=== PATIENT | female | born 1950 | race American Indian/Alaskan Native ===

== ENCOUNTER 2018-07-02 14:52 | Inpatient (IN) | payer MEDICARE, OTHER ==
[2018-07-02 14:52] VITALS: BMI 25.2
[2018-07-02 15:31] LABS: BASO % 0.5 % (0.0-2.0); EOS # 0.1 K/uL (0.0-0.7); EOS % 0.8 % (0.0-4.0); LYMPH # 3.3 K/uL (1.0-4.3); LYMPH % 34.6 % (20.0-40.0); MEAN CELL VOLUME 91.3 fL (81.0-99.0); MEAN CORPUSCULAR HEMOGLOBIN 31.3 pg (27.0-31.0); MEAN CORPUSCULAR HGB CONC 34.3 g/dL (33.0-37.0); MEAN PLATELET VOLUME 8.8 fL (7.2-11.7); MONO # 0.8 K/uL (0.0-0.8); MONO % 8.7 % (0.0-10.0); NEUT # 5.3 K/uL (1.8-7.0); NEUT % 55.4 % (50.0-75.0); RBC 4.14 Mil/uL (3.80-5.20); RED CELL DISTRIBUTION WIDTH 12.5 % (11.5-14.5); WHITE BLOOD COUNT 9.5 K/uL (4.8-10.8)
[2018-07-02 15:39] LABS: INR 1.2; PROTHROMBIN TIME 13.3 SECONDS (9.7-12.2)
[2018-07-02 15:48] LABS: ALB/GLOB RATIO 1.2 (1.0-2.1); ALBUMIN 4.1 g/dL (3.5-5.0); BLOOD UREA NITROGEN 13 mg/dL (7-17); GFR AFRICAN-AMERICAN > 60; GFR NON-AFRICAN AMERICAN > 60
[2018-07-02 15:49] LABS: ALT/SGPT 26 U/L (9-52); AST/SGOT 20 U/L (14-36)
--- NOTE | 2018-07-02 16:27 | C.PDOC ---
Addendum entered and electronically signed by Vinicio Fregoso MD 07/02/18 16: 32: ED Course And Treatment - Laboratory Results Result Diagrams: 07/02/18 15:24 07/02/18 15:24 ECG: Interpreted By Me, Viewed By Me ECG Rhythm: Sinus Rhythm ECG Interpretation: No Acute Changes Rate From EC O2 Sat by Pulse Oximetry: 100 Original Note: History Of Present Illness Pt was sent in by Dr. Crews for admission due to severe b/l LE PVD with pain. Time Seen by Provider: 07/02/18 14:59 Chief Complaint (Nursing): Lower Extremity Problem/Injury History Per: Patient Onset/Duration Of Symptoms: Days Current Symptoms Are (Timing): Still Present Severity: Moderate Additional History Per: Prior Records Past Medical History Reviewed: Historical Data, Nursing Documentation, Vital Signs Vital Signs: Last Vital Signs Temp Pulse 74 07/02/18 15:10 Resp 16 07/02/18 15:10 BP 159/60 H 07/02/18 15:10 Pulse Ox 100 07/02/18 15:10 - Medical History PMH: HTN Other PMH: PVD. Scleroderma. Other Surgeries: LE bypass - [facility] Procedures ANGIOPLASTY OF OTHER NON-CORONARY VESSEL(S) (07/16/13) ATHERECTOMY OF OTHER NON-CORONARY VESSEL(S) (02/10/14) PROCEDURE ON SINGLE VESSEL (02/10/14) Family History: States: Unknown Family Hx - Social History Hx Tobacco Use: No (Quit in 1989) Hx Alcohol Use: No Hx Substance Use: No - Immunization History Hx Tetanus Toxoid Vaccination: No Hx Influenza Vaccination: No Hx Pneumococcal Vaccination: No Review Of Systems Except As Marked, All Systems Reviewed And Found Negative. Constitutional: Negative for: Fever, Weakness Cardiovascular: Negative for: Chest Pain Respiratory: Negative for: Shortness of Breath, Hemoptysis Gastrointestinal: Negative for: Vomiting, Abdominal Pain Musculoskeletal: Positive for: Leg Pain (b/l). Negative for: Neck Pain, Back Pain Skin: Negative for: Rash Neurological: Negative for: Weakness, Numbness Physical Exam - Physical Exam Appears: Non-toxic, No Acute Distress Skin: Normal Color, Warm, Dry, No Rash Head: Atraumatic, Normacephalic Eye(s): bilateral: Normal Inspection, PERRL, EOMI Neck: Normal ROM, Supple Cardiovascular: Rhythm Regular Respiratory: Normal Breath Sounds, No Accessory Muscle Use Gastrointestinal/Abdominal: Soft, No Tenderness Back: No CVA Tenderness, No Vertebral Tenderness Extremity: Normal ROM, No Pedal Edema, No Calf Tenderness, Capillary Refill (wnl ), No Deformity Extremity: Bilateral: Normal Color And Temperature Pulses: Left Dorsalis Pedis: Decreased, Right Dorsalis Pedis: Decreased Neurological/Psych: Oriented x3, Normal Motor, Normal Sensation ED Course And Treatment - Laboratory Results Result Diagrams: 07/02/18 15:24 07/02/18 15:24 Lab Interpretation: No Acute Changes O2 Sat by Pulse Oximetry: 100 Pulse Ox Interpretation: Normal Disposition Discussed With : Bessy Vallecillo (PMD) Comment: He accepted pt on his service. Doctor Will See Patient In The: Hospital Counseled Patient/Family Regarding: Studies Performed, Diagnosis - Disposition Disposition: HOSPITALIZED Disposition Time: 16:30 Condition: FAIR - Clinical Impression Clinical Impression: PVD (peripheral vascular disease) with claudication
[2018-07-02 19:38] VITALS: RESP 20
[2018-07-02] MEDS ORDERED: Tramadol 25 mg PO PRN (21:37)
--- NOTE | 2018-07-02 23:46 | CP.PCM.HP ---
Past Patient History - Past Medical History & Family History Past Medical History?: Yes - Past Social History Smoking Status: Former Smoker - CARDIAC Hx Hypertension: Yes Hx Peripheral Vascular Disease: Yes - PULMONARY Hx Respiratory Disorders: No - NEUROLOGICAL Hx Neurological Disorder: No Hx Paralysis: No - HEENT Hx HEENT Problems: No - RENAL Hx Chronic Kidney Disease: No - ENDOCRINE/METABOLIC Hx Systemic Lupus Erythematosus: Yes - HEMATOLOGICAL/ONCOLOGICAL Hx Blood Disorders: No Hx Blood Transfusions: No Hx Blood Transfusion Reaction: No - INTEGUMENTARY Hx Dermatological Problems: Yes Other/Comment: SCLERODERMA - MUSCULOSKELETAL/RHEUMATOLOGICAL Hx Musculoskeletal Disorders: No Hx Falls: No - GASTROINTESTINAL Hx Gastrointestinal Disorders: No - GENITOURINARY/GYNECOLOGICAL Hx Genitourinary Disorders: No - PSYCHIATRIC Hx Psychophysiologic Disorder: No Hx Substance Use: No - SURGICAL HISTORY Hx Surgeries: Yes Other/Comment: STENTS TO BLLE - ANESTHESIA Hx Anesthesia: Yes Hx Anesthesia Reactions: No Meds Allergies/Adverse Reactions: Allergies Allergy/AdvReac Type Severity Reaction Status Date / Time No Known Allergies Allergy Verified 07/15/13 08:03 Results - Vital Signs Recent Vital Signs: Last Vital Signs Temp 98.5 F 07/02/18 18:00 Pulse 76 07/02/18 18:00 Resp 20 07/02/18 18:00 BP 158/64 H 07/02/18 18:00 Pulse Ox 98 07/02/18 18:00 - Labs Result Diagrams: 07/02/18 15:24 07/02/18 15:24 Labs: Laboratory Results - last 24 hr 07/02/18 07/02/18 07/02/18 15:24 15:24 15:24 WBC 9.5 RBC 4.14 Hgb 13.0 Hct 37.8 MCV 91.3 MCH 31.3 H MCHC 34.3 RDW 12.5 Plt Count 202 MPV 8.8 Neut % (Auto) 55.4 Lymph % (Auto) 34.6 Clarke % (Auto) 8.7 Eos % (Auto) 0.8 Baso % (Auto) 0.5 Neut # (Auto) 5.3 Lymph # (Auto) 3.3 Clarke # (Auto) 0.8 Eos # (Auto) 0.1 Baso # (Auto) 0.0 PT 13.3 H INR 1.2 APTT 28 Sodium 142 Potassium 3.4 L Chloride 106 Carbon Dioxide 26 Anion Gap 13 BUN 13 Creatinine 0.7 Est GFR ( Amer) > 60 Est GFR (Non-Af Amer) > 60 Random Glucose 123 H Calcium 10.0 Magnesium 1.8 Total Bilirubin 0.6 AST 20 ALT 26 Alkaline Phosphatase 90 Total Creatine Kinase 96 Total Protein 7.4 Albumin 4.1 Globulin 3.3 Albumin/Globulin Ratio 1.2
--- NOTE | 2018-07-03 09:55 | CP.PCM.CON ---
History of Present Illness - History of Present Illness History of Present Illness: Vascular Surgery Consult for Dr. Astorga Mrs. Kwan is a 68 yr old female with PMH HTN, Scleroderma and PVD who presents today with pain in her legs bilaterally with radiation to her hips. She had previously only had pain in her right leg but the pain has also begun in her left leg this year. She endorses increased pain with walking approximately 1 block and need for rest in order for pain to decrease and feelings of coldness in her legs. She denies f/c/n/v, motor changes and sensory changes. PMH: HTN, scleroderma PSH: arthrectomy and arterioplasty in Right leg with Dr. Davis Zapata in 2013 Allergies: nkda Review of Systems - Review of Systems All systems: reviewed and no additional remarkable complaints except Review of Systems: as per HPI Past Patient History - Past Medical History & Family History Past Medical History?: Yes - Past Social History Smoking Status: Former Smoker - CARDIAC Hx Hypertension: Yes Hx Peripheral Vascular Disease: Yes - PULMONARY Hx Respiratory Disorders: No - NEUROLOGICAL Hx Neurological Disorder: No Hx Paralysis: No - HEENT Hx HEENT Problems: No - RENAL Hx Chronic Kidney Disease: No - ENDOCRINE/METABOLIC Hx Systemic Lupus Erythematosus: Yes - HEMATOLOGICAL/ONCOLOGICAL Hx Blood Disorders: No Hx Blood Transfusions: No Hx Blood Transfusion Reaction: No - INTEGUMENTARY Hx Dermatological Problems: Yes Other/Comment: SCLERODERMA - MUSCULOSKELETAL/RHEUMATOLOGICAL Hx Musculoskeletal Disorders: No Hx Falls: No - GASTROINTESTINAL Hx Gastrointestinal Disorders: No - GENITOURINARY/GYNECOLOGICAL Hx Genitourinary Disorders: No - PSYCHIATRIC Hx Psychophysiologic Disorder: No Hx Substance Use: No - SURGICAL HISTORY Hx Surgeries: Yes Other/Comment: STENTS TO BLLE - ANESTHESIA Hx Anesthesia: Yes Hx Anesthesia Reactions: No Meds Allergies/Adverse Reactions: Allergies Allergy/AdvReac Type Severity Reaction Status Date / Time No Known Allergies Allergy Verified 07/15/13 08:03 - Medications Medications: Current Medications Aspirin (Ecotrin) 81 mg PO DAILY [facility] Cilostazol (Pletal) 100 mg PO BID [facility] Folic Acid (Folic Acid) 1 mg PO DAILY [facility] Heparin Sodium (Porcine) (Heparin) 5,000 units SC Q8 [facility] Last Admin: 07/03/18 06:33 Dose: 5,000 units Hydroxychloroquine Sulfate (Plaquenil) 200 mg PO BID [facility] PRN Reason: Protocol Losartan Potassium (Cozaar) 100 mg PO DAILY [facility] Nifedipine (Procardia Xl) 30 mg PO DAILY [facility] Prednisone (Prednisone Tab) 5 mg PO BID [facility] Rosuvastatin Calcium (Crestor) 5 mg PO HS [facility] Last Admin: 07/02/18 22:18 Dose: 5 mg Tramadol HCl (Ultram) 25 mg PO TID PRN PRN Reason: Pain, moderate (4-7) Physical Exam - Constitutional Appears: Well, Non-toxic, No Acute Distress - Head Exam Head Exam: ATRAUMATIC, NORMOCEPHALIC - ENT Exam ENT Exam: Mucous Membranes Moist - Respiratory Exam Respiratory Exam: NORMAL BREATHING PATTERN - Cardiovascular Exam Cardiovascular Exam: +S1, +S2 - GI/Abdominal Exam GI & Abdominal Exam: Soft. absent: Distended, Tenderness - Extremities Exam Extremities exam: Negative for: calf tenderness, pedal edema Additional comments: DP and PT and popliteal pulses are dopplerable bilaterally, pulses not palpable , both feet warm with no skin mottling or edema - Neurological Exam Neurological exam: Alert, Oriented x3 - Psychiatric Exam Psychiatric exam: Normal Affect, Normal Mood - Skin Skin Exam: Dry, Intact, Normal Color, Warm Additional comments: no mottling or skin changes in extremities Results - Vital Signs Recent Vital Signs: Last Vital Signs Temp 98.2 F 07/03/18 07:00 Pulse 68 07/03/18 07:00 Resp 20 07/03/18 07:00 BP 152/70 H 07/03/18 07:00 Pulse Ox 97 07/03/18 07:00 - Labs Result Diagrams: 07/02/18 15:24 07/02/18 15:24 Labs: Laboratory Results - last 24 hr 07/02/18 07/02/18 07/02/18 15:24 15:24 15:24 WBC 9.5 RBC 4.14 Hgb 13.0 Hct 37.8 MCV 91.3 MCH 31.3 H MCHC 34.3 RDW 12.5 Plt Count 202 MPV 8.8 Neut % (Auto) 55.4 Lymph % (Auto) 34.6 Bee % (Auto) 8.7 Eos % (Auto) 0.8 Baso % (Auto) 0.5 Neut # (Auto) 5.3 Lymph # (Auto) 3.3 Bee # (Auto) 0.8 Eos # (Auto) 0.1 Baso # (Auto) 0.0 ESR PT 13.3 H INR 1.2 APTT 28 Sodium 142 Potassium 3.4 L Chloride 106 Carbon Dioxide 26 Anion Gap 13 BUN 13 Creatinine 0.7 Est GFR ( Amer) > 60 Est GFR (Non-Af Amer) > 60 Random Glucose 123 H Hemoglobin A1c Calcium 10.0 Magnesium 1.8 Total Bilirubin 0.6 AST 20 ALT 26 Alkaline Phosphatase 90 Total Creatine Kinase 96 C-Reactive Protein Total Protein 7.4 Albumin 4.1 Globulin 3.3 Albumin/Globulin Ratio 1.2 Triglycerides Cholesterol LDL Cholesterol Direct HDL Cholesterol 07/03/18 07/03/18 07/03/18 07:34 07:34 07:34 WBC RBC Hgb Hct MCV MCH MCHC RDW Plt Count MPV Neut % (Auto) Lymph % (Auto) Bee % (Auto) Eos % (Auto) Baso % (Auto) Neut # (Auto) Lymph # (Auto) Bee # (Auto) Eos # (Auto) Baso # (Auto) ESR 2 PT INR APTT 40 H D Sodium Potassium Chloride Carbon Dioxide Anion Gap BUN Creatinine Est GFR ( Amer) Est GFR (Non-Af Amer) Random Glucose Hemoglobin A1c Calcium Magnesium Total Bilirubin AST ALT Alkaline Phosphatase Total Creatine Kinase C-Reactive Protein 5.30 Total Protein Albumin Globulin Albumin/Globulin Ratio Triglycerides 97 Cholesterol 130 LDL Cholesterol Direct 53 HDL Cholesterol 43 07/03/18 07:34 WBC RBC Hgb Hct MCV MCH MCHC RDW Plt Count MPV Neut % (Auto) Lymph % (Auto) Bee % (Auto) Eos % (Auto) Baso % (Auto) Neut # (Auto) Lymph # (Auto) Bee # (Auto) Eos # (Auto) Baso # (Auto) ESR PT INR APTT Sodium Potassium Chloride Carbon Dioxide Anion Gap BUN Creatinine Est GFR ( Amer) Est GFR (Non-Af Amer) Random Glucose Hemoglobin A1c 5.3 Calcium Magnesium Total Bilirubin AST ALT Alkaline Phosphatase Total Creatine Kinase C-Reactive Protein Total Protein Albumin Globulin Albumin/Globulin Ratio Triglycerides Cholesterol LDL Cholesterol Direct HDL Cholesterol Assessment & Plan - Assessment and Plan (Free Text) Assessment: 68 F presents with bilateral leg pain consistent with claudication and prior PVD Plan: -DP, PT and popliteal pulses all dopplerable/ palpable - will f/u CTA -discussed plan with Dr. Stan Carpenter, PGY 1 - Date & Time Date: 07/03/18 Time: 02:15
[2018-07-03] MEDS: Cilostazol 100 mg Tab UD PO SCH ×2 (10:40→17:45)
[2018-07-03] MEDS: NIFEdipine 30 mg ER Tab PO SCH (10:41)
[2018-07-03] MEDS ORDERED: Iodixanol 320 mg/ml 150 ml Bottle IV ONE (12:10)
--- NOTE | 2018-07-03 13:22 | CT ---
Date of service: 07/03/2018 PROCEDURE: CT Angiography Abdomen, Pelvis and Lower Extremity with Contrast HISTORY: femoral occlusion COMPARISON: None available. TECHNIQUE: Technique: CT angiography of the abdomen, pelvis and bilateral lower extremities performed in the arterial phase of enhancement. Coronal and sagittal reformats, and well as rotating MIP images of the vessels generated at the workstation. Intravenous contrast dose: 150 milliliters Visipaque 320 Radiation dose: Total exam DLP = 1346.45 MGy-cm. This CT exam was performed using one or more of the following dose reduction techniques: Automated exposure control, adjustment of the mA and/or kV according to patient size, and/or use of iterative reconstruction technique. FINDINGS: CT ANGIOGRAPHY: ABDOMINAL AORTA:: The suprarenal aorta is unremarkable. There is significant calcific plaque in the infrarenal aorta with mild to severe stenosis of the aorta at the level renal arteries. MAJOR AORTIC BRANCHES: Celiac Enigma: Unremarkable. Superior mesenteric artery: Unremarkable. Inferior mesenteric artery: Unremarkable. Renal arteries: Unremarkable. PELVIC ARTERIES: Right Common Iliac: Unremarkable. Right External Iliac: Unremarkable. Right Internal Iliac: Unremarkable. Left Common Iliac: Unremarkable. Left External Iliac: Unremarkable. Left Internal Iliac: Unremarkable. RIGHT LOWER EXTREMITY ARTERIES: Right Common Femoral: Unremarkable. Right Superficial Femoral: Unremarkable. Right Profunda Femoris: Unremarkable. Right Popliteal:Occlusion of previously placed popliteal stent Right Anterior Tibial: Unremarkable. Right Tibioperoneal Trunk: Unremarkable. Right Posterior Tibial: Unremarkable. Right Peroneal: Unremarkable. Right dorsalis pedis : Unremarkable. LEFT LOWER EXTREMITY ARTERIES: Left Common Femoral: Severe calcific plaque of the common femoral artery with severe stenosis of the common femoral artery. Left Superficial Femoral: Significant stenosis in the SFA. Left Profunda Femoris: Unremarkable. Left Popliteal: Unremarkable. Left Anterior Tibial: Unremarkable. Left Tibioperoneal Trunk: Unremarkable. Left Posterior Tibial: Unremarkable. Left Peroneal: Unremarkable. Left Dorsalis pedis: Unremarkable. NON-ANGIOGRAPHIC ASPECT OF THE EXAM: LOWER THORAX: Unremarkable. LIVER: Unremarkable. No gross lesion or ductal dilatation. GALLBLADDER AND BILE DUCTS: Unremarkable. PANCREAS: Unremarkable. No gross lesion or ductal dilatation. SPLEEN: Unremarkable. ADRENALS: Unremarkable. No mass. KIDNEYS AND URETERS: Unremarkable. No hydronephrosis. No solid mass. STOMACH AND BOWEL: Limited evaluation of PO contrast. Unable to assess for any mass in the pelvis. APPENDIX: PERITONEUM: Unremarkable. No free fluid. No free air. LYMPH NODES: Unremarkable. No enlarged lymph nodes. BLADDER: Unremarkable. REPRODUCTIVE: Unremarkable. BONES: No acute fracture. OTHER FINDINGS: None. IMPRESSION: CT ANGIOGRAM ABDOMEN/ PELVIS: 1. The suprarenal aorta is unremarkable. There is significant calcific plaque in the infrarenal aorta with severe stenosis of the aorta at the level renal arteries. 2. Pelvic arteries unremarkable. LEFT LOWER EXTREMITY CT ANGIOGRAM: 1. Bulky calcific plaque of the common femoral artery with severe stenosis of the common femoral artery. 2. The profunda femoral artery, superficial femoral artery, and popliteal artery are normal. 3. Three-vessel runoff. RIGHT LOWER EXTREMITY CT ANGIOGRAM: 1. The common femoral artery, superficial femoral artery, profunda femoral artery are normal. 2. Occlusion of previously placed popliteal artery stent. 3. Three-vessel runoff.
--- NOTE | 2018-07-03 23:54 | CP.PCM.PN ---
Subjective - Date & Time of Evaluation Date of Evaluation: 07/03/18 Time of Evaluation: 11:30 - Subjective Subjective: Patient seen and evaluated Admitted for Severe PAD Awaiting CTA of extremities Vascular on case Objective - Vital Signs/Intake and Output Vital Signs (last 24 hours): Temp Pulse Resp BP Pulse Ox 97.4 F L 74 20 151/63 H 97 07/03/18 15:40 07/03/18 15:40 07/03/18 15:40 07/03/18 15:40 07/03/18 15:40 Intake and Output: 07/03/18 07/04/18 18:59 06:59 Intake Total 850 Balance 850 - Medications Medications: Current Medications Aspirin (Ecotrin) 81 mg PO DAILY [facility] Last Admin: 07/03/18 10:43 Dose: 81 mg Cilostazol (Pletal) 100 mg PO BID [facility] Last Admin: 07/03/18 17:45 Dose: 100 mg Folic Acid (Folic Acid) 1 mg PO DAILY [facility] Last Admin: 07/03/18 10:40 Dose: 1 mg Heparin Sodium (Porcine) (Heparin) 5,000 units SC Q8 [facility] Last Admin: 07/03/18 21:18 Dose: 5,000 units Hydroxychloroquine Sulfate (Plaquenil) 200 mg PO BID [facility] PRN Reason: Protocol Last Admin: 07/03/18 17:45 Dose: 200 mg Losartan Potassium (Cozaar) 100 mg PO DAILY [facility] Last Admin: 07/03/18 10:40 Dose: 100 mg Nifedipine (Procardia Xl) 30 mg PO DAILY [facility] Last Admin: 07/03/18 10:41 Dose: 30 mg Prednisone (Prednisone Tab) 5 mg PO BID [facility] Last Admin: 07/03/18 17:45 Dose: 5 mg Rosuvastatin Calcium (Crestor) 5 mg PO HS [facility] Last Admin: 07/03/18 21:16 Dose: 5 mg Tramadol HCl (Ultram) 25 mg PO TID PRN PRN Reason: Pain, moderate (4-7) - Labs Labs: 07/02/18 15:24 07/02/18 15:24 PT 13.3 SECONDS (9.7-12.2) H 07/02/18 15:24 INR 1.2 07/02/18 15:24 APTT 40 SECONDS (21-34) H D 07/03/18 07:34
[2018-07-04 01:02] VITALS: O2SAT 99
[2018-07-04 08:17] VITALS: BP 160/79; PULSE 96; TEMP 98.1
--- NOTE | 2018-07-04 09:02 | CP.PCM.PN ---
Subjective - Date & Time of Evaluation Date of Evaluation: 07/04/18 Time of Evaluation: 06:00 - Subjective Subjective: VASCULAR SURGERY PROGRESS NOTE FOR DR. MULLEN Patient seen and examined at bedside this AM. She has been ambulating to the bathroom. Reports pain in left foot is worse than right. Objective - Vital Signs/Intake and Output Vital Signs (last 24 hours): Temp Pulse Resp BP Pulse Ox 98.1 F 96 H 20 160/79 H 99 07/04/18 08:00 07/04/18 08:00 07/04/18 08:00 07/04/18 08:00 07/04/18 08:00 - Medications Medications: Current Medications Aspirin (Ecotrin) 81 mg PO DAILY [facility] Last Admin: 07/03/18 10:43 Dose: 81 mg Cilostazol (Pletal) 100 mg PO BID [facility] Last Admin: 07/03/18 17:45 Dose: 100 mg Folic Acid (Folic Acid) 1 mg PO DAILY [facility] Last Admin: 07/03/18 10:40 Dose: 1 mg Heparin Sodium (Porcine) (Heparin) 5,000 units SC Q8 [facility] Last Admin: 07/04/18 06:01 Dose: 5,000 units Hydroxychloroquine Sulfate (Plaquenil) 200 mg PO BID [facility] PRN Reason: Protocol Last Admin: 07/03/18 17:45 Dose: 200 mg Losartan Potassium (Cozaar) 100 mg PO DAILY [facility] Last Admin: 07/03/18 10:40 Dose: 100 mg Nifedipine (Procardia Xl) 30 mg PO DAILY [facility] Last Admin: 07/03/18 10:41 Dose: 30 mg Prednisone (Prednisone Tab) 5 mg PO BID [facility] Last Admin: 07/03/18 17:45 Dose: 5 mg Rosuvastatin Calcium (Crestor) 5 mg PO HS [facility] Last Admin: 07/03/18 21:16 Dose: 5 mg Tramadol HCl (Ultram) 25 mg PO TID PRN PRN Reason: Pain, moderate (4-7) - Labs Labs: 07/02/18 15:24 07/02/18 15:24 PT 13.3 SECONDS (9.7-12.2) H 07/02/18 15:24 INR 1.2 07/02/18 15:24 APTT 40 SECONDS (21-34) H D 07/03/18 07:34 - Constitutional Appears: Non-toxic, No Acute Distress - Respiratory Exam Respiratory Exam: NORMAL BREATHING PATTERN. absent: Respiratory Distress - Cardiovascular Exam Cardiovascular Exam: +S1, +S2 - GI/Abdominal Exam GI & Abdominal Exam: Soft. absent: Tenderness - Extremities Exam Additional comments: weakly palpable DP and PT pulses - Neurological Exam Neurological Exam: Alert, CN II-XII Intact, Oriented x3 - Psychiatric Exam Psychiatric exam: Normal Affect, Normal Mood - Skin Skin Exam: Dry, Warm Assessment and Plan - Assessment and Plan (Free Text) Assessment: 68 F presents with bilateral leg pain consistent with claudication and prior PVD Plan: - DP, PT and popliteal pulses all dopplerable/ palpable - CTA = There is significant calcific plaque in the infrarenal aorta with severe stenosis of the aorta at the level renal arteries. Bulky calcific plaque of the common femoral artery with severe stenosis of the common femoral artery. Occlusion of previously placed Right popliteal artery stent. - Will plan for outpatient endovascular intervention. - No further inpatient surgical workup necessary - may follow up with Dr. Mullen in his office, call to make appointment - Discussed plan with Dr. Stan Aldridge PGY-4
[2018-07-04] MEDS: Cilostazol 100 mg Tab UD PO SCH (09:36)
[2018-07-04] MEDS: NIFEdipine 30 mg ER Tab PO SCH (09:47)
--- NOTE | 2018-07-04 10:01 | CP.PCM.PN ---
<Tasha Tolentino - Last Filed: 07/04/18 13:03> Subjective - Date & Time of Evaluation Date of Evaluation: 07/04/18 Time of Evaluation: 09:59 - Subjective Subjective: Cardiology Progress Note - Dr Crews Patient seen and examined at bedside. Per nursing on acute events overnight. Patient is doing well, ambulating and tolerating diet. She states that the bilateral leg pain is less however she is only ambulating short distances in the hospital. Offers no other complaints at this time. Wishes to go home. Denies chest pain, palpitations, dyspnea. Objective - Vital Signs/Intake and Output Vital Signs (last 24 hours): Temp Pulse Resp BP Pulse Ox 98.1 F 96 H 20 160/79 H 99 07/04/18 08:00 07/04/18 08:00 07/04/18 08:00 07/04/18 08:00 07/04/18 08:00 - Medications Medications: Current Medications Aspirin (Ecotrin) 81 mg PO DAILY [facility] Last Admin: 07/04/18 09:36 Dose: 81 mg Cilostazol (Pletal) 100 mg PO BID [facility] Last Admin: 07/04/18 09:36 Dose: 100 mg Folic Acid (Folic Acid) 1 mg PO DAILY [facility] Last Admin: 07/04/18 09:36 Dose: 1 mg Heparin Sodium (Porcine) (Heparin) 5,000 units SC Q8 [facility] Last Admin: 07/04/18 06:01 Dose: 5,000 units Hydroxychloroquine Sulfate (Plaquenil) 200 mg PO BID [facility] PRN Reason: Protocol Last Admin: 07/04/18 09:36 Dose: 200 mg Losartan Potassium (Cozaar) 100 mg PO DAILY [facility] Last Admin: 07/04/18 09:36 Dose: 100 mg Nifedipine (Procardia Xl) 30 mg PO DAILY [facility] Last Admin: 07/04/18 09:47 Dose: 30 mg Prednisone (Prednisone Tab) 5 mg PO BID [facility] Last Admin: 07/04/18 09:36 Dose: 5 mg Rosuvastatin Calcium (Crestor) 5 mg PO HS [facility] Last Admin: 07/03/18 21:16 Dose: 5 mg Tramadol HCl (Ultram) 25 mg PO TID PRN PRN Reason: Pain, moderate (4-7) - Labs Labs: 07/02/18 15:24 07/02/18 15:24 PT 13.3 SECONDS (9.7-12.2) H 07/02/18 15:24 INR 1.2 07/02/18 15:24 APTT 40 SECONDS (21-34) H D 07/03/18 07:34 - Constitutional Appears: Well, No Acute Distress - Head Exam Head Exam: ATRAUMATIC, NORMAL INSPECTION, NORMOCEPHALIC - Eye Exam Eye Exam: EOMI, Normal appearance - ENT Exam ENT Exam: Mucous Membranes Moist - Neck Exam Neck Exam: Full ROM - Respiratory Exam Respiratory Exam: Clear to Ausculation Bilateral, NORMAL BREATHING PATTERN. absent: Decreased Breath Sounds, Rales, Rhonchi, Wheezes - Cardiovascular Exam Cardiovascular Exam: REGULAR RHYTHM, +S1, +S2 - GI/Abdominal Exam GI & Abdominal Exam: Soft. absent: Tenderness - Neurological Exam Neurological Exam: Alert, Awake - Psychiatric Exam Psychiatric exam: Normal Affect, Normal Mood Assessment and Plan - Assessment and Plan (Free Text) Assessment: A/P: Patient is a 68 year old female with past medical history of HTN, scleroderma, PVD who presented with bilateral leg pain, increased pain after ambulating 1 block. Found to have severe L common femoral artery disease, severe R popliteal artery disease and severe claudication. Severe peripheral vascular disease -Continue Cilostazol 100mg PO BID and ASA 81mg daily -CT angio showed severe L common femoral artery disease, severe R popliteal artery disease (see full report) -Patient to follow up with Dr Astorga outpatient for further management -Patient is clear for d/c home from cardiac standpoint -Plan discussed with Dr Crews Hypertension -Continue Cozaar 100mg PO daily -Continue Procardia XL 30mg Tasha Tolentino DO PGY-2 <Jw Crews - Last Filed: 07/05/18 07:34> Objective - Vital Signs/Intake and Output Vital Signs (last 24 hours): Temp Pulse Resp BP Pulse Ox 98.1 F 96 H 20 160/79 H 99 07/04/18 08:00 07/04/18 08:00 07/04/18 08:00 07/04/18 08:00 07/04/18 08:00 - Labs Labs: 07/02/18 15:24 07/02/18 15:24 PT 13.3 SECONDS (9.7-12.2) H 07/02/18 15:24 INR 1.2 07/02/18 15:24 APTT 40 SECONDS (21-34) H D 07/03/18 07:34 Assessment and Plan - Assessment and Plan (Free Text) Assessment: Patient seen and evaluated personally by me Plan of care d/w the medical care manager and as documented
--- NOTE | 2018-07-04 12:06 | CP.PCM.PN ---
Subjective - Date & Time of Evaluation Date of Evaluation: 07/04/18 Time of Evaluation: 12:06 - Subjective Subjective: PT SEEN BY DR. HUBER AND CLEARED FOR D/C HOME TODAY. SHE IS TO F/U WITH DR. MULLEN AND DR. CARBAJAL IN THEIR OFFICES. PT STATES SHE HAS ENOUGH OF HER HOME MEDICATIONS, INCLUDING ASA, AND PLETAL. NEW RX GIVEN FOR STATIN AND LYRICA PER DR. CARBAJAL. D/C INSTRUCTIONS DISCUSSED W PT AT LENGTH. NO FURTHER ORDERS. -FOLLOW UP WITH DR. HUBER IN THE OFFICE WITHIN 5-7 DAYS---CALL THE OFFICE TO MAKE YOUR APPOINTMENT. -FOLLOW UP WITH DR. MULLEN (VASCULAR SURGEON) IN THE OFFICE WITHIN 7-10 DAYS-- -CALL THE OFFICE TO MAKE YOUR APPOINTMENT. DURING THIS VISIT, DR. MULLEN WILL DISCUSS WITH YOU FURTHER OUTPATIENT TREATMENT. -CONTINUE MEDICATIONS AT HOME USUAL. YOUR ASPIRIN AND PLETAL HAVE BEEN REFILLED. -NEW PRESCRIPTIONS SENT TO [facility]: 1) CRESTOR 5 MG (FOR CHOLESTEROL BUILD UP IN ARTERIES, AND CIRCULATION)---TAKE 1 TABLET BY MOUTH AT BEDTIME EVERY NIGHT. 2) LYRICA 50 MG (FOR THE PAIN IN YOUR LEGS)---TAKE 1 TABLET BY MOUTH TWICE A DAY (MORNING AND EVENING). -FOR FURTHER QUESTIONS OR CONCERNS, CONTACT DR. HUBER'S OFFICE. Objective - Vital Signs/Intake and Output Vital Signs (last 24 hours): Temp Pulse Resp BP Pulse Ox 98.1 F 96 H 20 160/79 H 99 07/04/18 08:00 07/04/18 08:00 07/04/18 08:00 07/04/18 08:00 07/04/18 08:00 - Medications Medications: Current Medications Aspirin (Ecotrin) 81 mg PO DAILY [facility] Last Admin: 07/04/18 09:36 Dose: 81 mg Cilostazol (Pletal) 100 mg PO BID [facility] Last Admin: 07/04/18 09:36 Dose: 100 mg Folic Acid (Folic Acid) 1 mg PO DAILY [facility] Last Admin: 07/04/18 09:36 Dose: 1 mg Heparin Sodium (Porcine) (Heparin) 5,000 units SC Q8 [facility] Last Admin: 07/04/18 06:01 Dose: 5,000 units Hydroxychloroquine Sulfate (Plaquenil) 200 mg PO BID [facility] PRN Reason: Protocol Last Admin: 07/04/18 09:36 Dose: 200 mg Losartan Potassium (Cozaar) 100 mg PO DAILY [facility] Last Admin: 07/04/18 09:36 Dose: 100 mg Nifedipine (Procardia Xl) 30 mg PO DAILY [facility] Last Admin: 07/04/18 09:47 Dose: 30 mg Prednisone (Prednisone Tab) 5 mg PO BID [facility] Last Admin: 07/04/18 09:36 Dose: 5 mg Rosuvastatin Calcium (Crestor) 5 mg PO HS [facility] Last Admin: 07/03/18 21:16 Dose: 5 mg Tramadol HCl (Ultram) 25 mg PO TID PRN PRN Reason: Pain, moderate (4-7) - Labs Labs: 07/02/18 15:24 07/02/18 15:24 PT 13.3 SECONDS (9.7-12.2) H 07/02/18 15:24 INR 1.2 07/02/18 15:24 APTT 40 SECONDS (21-34) H D 07/03/18 07:34
[2018-07-07 16:07] LABS: SCL-70 ANTIBODY <1.0 AI (<1.0)
--- NOTE | 2018-07-07 21:07 | CARD ---
APPROVED REPORT EKG Measurement Heart [id number] <Conclusion> Normal sinus rhythm Normal ECG
== END 2018-07-04 13:00 | disposition home or self-care (01) | DRG 301 ==
LOC: C.ER 14:52 → C.9E 16:31 → C.3T 17:19
PROVIDERS: ADMIT Internal Medicine; ATTEND Internal Medicine
DX: I70.223 Atherosclerosis of native arteries of extremities with rest pain, bilateral legs (principal); I10 Essential (primary) hypertension; M32.9 Systemic lupus erythematosus, unspecified; M34.9 Systemic sclerosis, unspecified; Z79.82 Long term (current) use of aspirin; Z87.891 Personal history of nicotine dependence